=== PATIENT | male | born 1955 | race Caucasian/White ===

== ENCOUNTER 2018-11-28 11:40 | Emergency (ER) | payer OTHER ==
[2018-11-28 11:50] VITALS: BP 146/81; PULSE 70; TEMP 98.6; BMI 68.0
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
== END 2018-11-28 13:32 | disposition home or self-care (01) ==
LOC: JERFT 11:40
DX: S39.012A Strain of muscle, fascia and tendon of lower back, initial encounter (principal); V79.49XA Driver of bus injured in collision with other motor vehicles in traffic accident, initial encounter; Y92.414 Local residential or business street as the place of occurrence of the external cause; Y93.89 Activity, other specified; Y99.0 Civilian activity done for income or pay; I10 Essential (primary) hypertension; E78.5 Hyperlipidemia, unspecified; E11.9 Type 2 diabetes mellitus without complications; Z79.84 Long term (current) use of oral hypoglycemic drugs
CPT/HCPCS: 99281-25

== ENCOUNTER 2024-01-04 09:00 | Emergency (ER) | payer OTHER ==
[2024-01-04] MEDS ORDERED: ONDANSETRON 4 MG/2 ML VIAL ONE (09:45)
[2024-01-04 09:49] VITALS: BMI 29.7
[2024-01-04] MEDS: ONDANSETRON 4 MG/2 ML VIAL IVPUSH ONE (10:07)
[2024-01-04] MEDS: SODIUM CHLORIDE 0.9% 500 ML INFUS.BAG IV ONE (10:07)
[2024-01-04 10:11] LABS: BASO % 0.4 % (0-2.0); EOS % 0.5 % (0-4.5); HEMATOCRIT 39.5 % (35.4-49); HEMOGLOBIN 13.6 GM/dL (11.7-16.9); MCH 30.1 pg (25.7-33.7); MCHC 34.5 g/dl (32.0-35.9); MEAN CELL VOLUME 87.5 fl (80-96); MEAN PLT VOLUME 7.1 fl (7.5-11.1); MONO % 6.2 % (3.8-10.2); NEUT % 85.9 % (42.8-82.8); PLATELET COUNT 158 10^3/uL (134-434); RBC 4.51 M/mm3 (4.00-5.60); RDW 13.6 % (11.9-15.9); WHITE BLOOD COUNT 7.9 K/mm3 (4.0-10.0)
[2024-01-04 11:11] LABS: POTASSIUM 4.2 mmol/L (3.5-5.1)
[2024-01-04 11:13] LABS: CALCIUM 9.6 mg/dL (8.5-10.1)
[2024-01-04 11:14] LABS: ALBUMIN 3.8 g/dl (3.4-5.0); BLOOD UREA NITROGEN 27.7 mg/dL (7-18)
[2024-01-04 11:17] LABS: CREATININE 1.8 mg/dL (0.55-1.3)
[2024-01-04 11:18] LABS: BILIRUBIN,TOTAL 0.5 mg/dL (0.2-1)
[2024-01-04 11:22] LABS: N-TERMINAL BNP 101.7 pg/ml (5-125)
[2024-01-04 15:19] LABS: POTASSIUM 4.6 mmol/L (3.5-5.1)
[2024-01-04 15:22] LABS: BLOOD UREA NITROGEN 27.5 mg/dL (7-18); CALCIUM 8.8 mg/dL (8.5-10.1)
[2024-01-04 15:26] LABS: CREATININE 1.7 mg/dL (0.55-1.3)
[2024-01-04 15:45] VITALS: BP 137/69; PULSE 74; RESP 18; TEMP 98.5
== END 2024-01-04 16:48 | disposition home or self-care (01) ==
LOC: JER 09:00
PROC: 3E033GC Introduction of Other Therapeutic Substance into Peripheral Vein, Percutaneous Approach (ICD-10-PCS; principal; 2024-01-04)
DX: R19.7 Diarrhea, unspecified (principal); R11.10 Vomiting, unspecified; R53.1 Weakness; K52.9 Noninfective gastroenteritis and colitis, unspecified; N28.9 Disorder of kidney and ureter, unspecified; R15.9 Full incontinence of feces; Z20.822 Contact with and (suspected) exposure to COVID-19
CPT/HCPCS: 0241U-QW; 36415; 80048; 80053; 83605; 83690; 83880; 84484; 85025; 93005; 93010; 99284-25